=== PATIENT | female | born 1980 | race Caucasian/White ===

== ENCOUNTER 2023-08-30 15:25 | Inpatient (IN) | payer MEDICAID ==
[~2023-08-30] VITALS: Ht 160 cm; Wt 59.9 kg
[2023-08-30] MEDS ORDERED: CARB-92 PO (21:10)
[2023-08-30] MEDS ORDERED: QUET100T PO (21:10)
[2023-08-30 21:52] VITALS: BP 98/66; PULSE 94; RESP 18; TEMP 97.8; O2SAT 100
[2023-08-30] MEDS ORDERED: INFLUENZA VIRUS VACCINE QVS 2023-24 (6MO+)/PF 60 MCG/0.5 ML SYRINGE IM. ONE (22:30)
[2023-08-31] MEDS ORDERED: PETROLATUM,WHITE 28 GM JELLY TP PRN (05:30)
[2023-08-31] MEDS ORDERED: ALBUTEROL SULFATE HFA 90 MCG/PUFF 8 GM INHALER IH PRN (05:30)
[2023-08-31] MEDS ORDERED: ACETAMINOPHEN 325 MG TABLET PO PRN (05:30)
[2023-08-31] MEDS ORDERED: OMEPRAZOLE 20 MG CAPSULE PO PRN (05:30)
[2023-08-31] MEDS ORDERED: LOPERAMIDE HCL 2 MG CAPSULE PO PRN (05:30)
[2023-08-31] MEDS ORDERED: BENZOCAINE/MENTHOL LOZENGE PO PRN (05:30)
[2023-08-31] MEDS ORDERED: ONDANSETRON HCL 4 MG TABLET PO PRN (05:30)
[2023-08-31] MEDS ORDERED: MAG HYDROX/ALUMINUM HYD/SIMETH ES 30 ML SUSPENSION UDCUP PO PRN (05:30)
[2023-08-31] MEDS ORDERED: DOCUSATE SODIUM 100 MG CAPSULE PO PRN (05:30)
[2023-08-31] MEDS ORDERED: CloNIDine HCL 0.1 MG TABLET PO PRN (05:30)
[2023-08-31] MEDS ORDERED: MAGNESIUM HYDROXIDE SUSPENSION 30 ML UDCUP PO PRN (05:30)
[2023-08-31] MEDS ORDERED: IBUPROFEN 600 MG TABLET PO PRN (05:30)
[2023-08-31] MEDS ORDERED: BACITRACIN 28 GM OINTMENT TP PRN (05:30)
[2023-08-31 08:14] VITALS: BP 139/77; PULSE 76; RESP 16; TEMP 97.9; O2SAT 100
[2023-08-31 08:45] LABS: BASOPHILS % (AUTO) 0.6 % (0.0-2.0); EOSINOPHILS % (AUTO) 1.7 % (1.0-6.0); HEMATOCRIT 37.4 % (36-46); HEMOGLOBIN 12.3 g/dL (12.0-16.0); LYMPHOCYTES % (AUTO) 28.6 % (22.0-44.0); MEAN CORPUSCULAR HEMOGLOBIN 30.6 pg (26.0-34.0); MEAN CORPUSCULAR HGB CONC 32.9 G/dL (31.0-37.0); MEAN CORPUSCULAR VOLUME 93 fL (80-100); MONOCYTES # (AUTO) 0.4 K/uL (0.1-1.0); MONOCYTES % (AUTO) 6.1 % (2.0-9.0); NEUTROPHILS # (AUTO) 4.3 K/uL (1.8-7.7); PLATELET COUNT (AUTO) 381 K/uL (150-450); RED BLOOD CELL COUNT(AUTO) 4.02 MIL/uL (4.00-5.20); RED CELL DISTRIBUTION WIDTH 13.6 % (11.5-14.5); WHITE BLOOD COUNT (AUTO) 6.9 K/uL (4.5-11.0)
[2023-08-31 09:05] LABS: ALANINE AMINOTRANSFERASE 39 U/L (12-78); ALBUMIN 4.1 g/dL (3.4-5.0); ALKALINE PHOSPHATASE 91 U/L (46-116); ANION GAP 7 mmol/L (8-16); ASPARTATE AMINOTRANSFERASE 24 U/L (15-37); BILIRUBIN,TOTAL 0.2 mg/dL (0.1-1.0); CALCIUM, TOTAL 8.7 mg/dL (8.8-10.5); CARBAMAZEPINE (TEGRETOL) 2.9 mcg/mL (4.0-12.0); CARBON DIOXIDE 27 mmol/L (22-29); CHLORIDE 96 mmol/L (98-107); FREE T4 (FREE THYROXINE) 0.94 ng/dL (0.76-1.46); GLOMERULAR FILTR. RATE CALC > 60 mL/min (>60); GLUCOSE,RANDOM 90 mg/dL (70-110); HCG,QUANTITATIVE 3 mIU/mL (0-6); POTASSIUM 4.1 mmol/L (3.5-5.1); SODIUM SERUM 130 mmol/L (136-145); T4 (THYROXINE) 6.3 mcg/dL (4.7-13.3); THYROID STIMULATING HORMONE 0.92 uIU/mL (0.36-3.74); TOTAL PROTEIN, SERUM 7.1 g/dL (6.4-8.2); UREA NITROGEN, BLOOD 11 mg/dL (7-18)
[2023-08-31] MEDS: HALOPERIDOL 5 MG TABLET PO PRN (16:09)
[2023-08-31] MEDS: LORazepam 2 MG TABLET PO PRN (16:10)
[2023-08-31] MEDS: DIVALPROEX SODIUM 500 MG DR TABLET PO SCH (17:00)
[2023-08-31] MEDS: LITHIUM CARBONATE 300 MG CAPSULE PO SCH (17:00)
[2023-08-31 20:18] VITALS: BP 150/97; PULSE 107; RESP 18; TEMP 98.4; O2SAT 100
[2023-08-31] MEDS: QUEtiapine FUMARATE 300 MG TABLET PO SCH (20:52)
[2023-09-01] MEDS: ZOLPIDEM TARTRATE 10 MG TABLET PO PRN (02:24)
[2023-09-01 08:34] VITALS: RESP 18
[2023-09-01] MEDS ORDERED: HALOPERIDOL LACTATE 5 MG/ML VIAL ONE (17:37)
[2023-09-01] MEDS ORDERED: LORazepam 2 MG/ML VIAL ONE (17:37)
[2023-09-01] MEDS ORDERED: DiphenhydrAMINE HCL 50 MG/ML VIAL ONE (17:38)
[2023-09-01] MEDS: LORazepam 2 MG/ML VIAL IM ONE (17:51)
[2023-09-01] MEDS: DiphenhydrAMINE HCL 50 MG/ML VIAL IM ONE (17:51)
[2023-09-01] MEDS: HALOPERIDOL LACTATE 5 MG/ML VIAL IM ONE (17:52)
[2023-09-01 20:21] VITALS: BP 130/75; PULSE 84; RESP 17; TEMP 98
[2023-09-02 08:35] LABS: ANION GAP 10 mmol/L (8-16); CALCIUM, TOTAL 9.1 mg/dL (8.8-10.5); CARBON DIOXIDE 26 mmol/L (22-29); CHLORIDE 103 mmol/L (98-107); CREATININE 0.49 mg/dL (0.60-1.30); GLOMERULAR FILTR. RATE CALC > 60 mL/min (>60); GLUCOSE,RANDOM 83 mg/dL (70-110); POTASSIUM 4.3 mmol/L (3.5-5.1); SODIUM SERUM 139 mmol/L (136-145); UREA NITROGEN, BLOOD 10 mg/dL (7-18)
[2023-09-02 08:55] VITALS: BP 106/69; PULSE 105; RESP 18; TEMP 97.8; O2SAT 98
[2023-09-03 03:00] VITALS: BP 128/82; PULSE 95; RESP 18; TEMP 97.7; O2SAT 98
[2023-09-03] MEDS: DiphenhydrAMINE HCL 50 MG/ML VIAL IM ONE (08:18)
[2023-09-03] MEDS: LORazepam 2 MG/ML VIAL IM ONE (08:19)
[2023-09-03] MEDS: HALOPERIDOL LACTATE 5 MG/ML VIAL IM ONE (08:19)
[2023-09-03 09:59] VITALS: BP 132/84; PULSE 97; RESP 18; TEMP 97.5; O2SAT 97
[2023-09-03] MEDS: QUEtiapine FUMARATE 300 MG TABLET PO SCH (20:13)
[2023-09-03 20:41] VITALS: BP 103/67; PULSE 98; RESP 18; TEMP 97.5; O2SAT 96
[2023-09-04 08:34] LABS: LITHIUM < 0.20 mmol/L (0.60-1.20)
[2023-09-04 08:35] LABS: VALPROIC ACID < 3 mcg/mL (50-100)
[2023-09-04 14:33] VITALS: BP 104/63; PULSE 96; RESP 14; TEMP 97.7; O2SAT 100
[2023-09-04] MEDS: CarBAMazepine 200 MG TABLET PO SCH (17:51)
[2023-09-04 20:20] VITALS: BP 129/84; PULSE 110; RESP 18; TEMP 98.4; O2SAT 100
[2023-09-05 08:10] VITALS: BP 106/75; PULSE 100; RESP 18; TEMP 98.6; O2SAT 100
[2023-09-05 21:00] VITALS: BP 142/84; PULSE 100; RESP 18; TEMP 97.8; O2SAT 100
[2023-09-06 01:48] VITALS: RESP 18; TEMP 97.9
[2023-09-06 08:23] VITALS: BP 106/69; PULSE 80; RESP 18; TEMP 98; O2SAT 97
[2023-09-06] MEDS ORDERED: LITH300C3 PO (08:34)
[2023-09-06] MEDS ORDERED: QUET300T2 PO (08:35)
[2023-09-06] MEDS ORDERED: DIVA-112 PO (08:35)
[2023-09-06] MEDS ORDERED: CARB-92 PO (08:36)
== END 2023-09-06 15:26 | disposition home or self-care (01) | DRG 753 ==
LOC: B3A 20:56
PROVIDERS: ADMIT Psychiatry & Neurology Psychiatry; ATTEND Psychiatry & Neurology Psychiatry
DX: F31.9 Bipolar disorder, unspecified (principal); R45.851 Suicidal ideations; F41.9 Anxiety disorder, unspecified; G47.00 Insomnia, unspecified; I10 Essential (primary) hypertension; K59.00 Constipation, unspecified; Z72.89 Other problems related to lifestyle; Z88.2 Allergy status to sulfonamides
CPT/HCPCS: 80048; 80053; 80156; 80164; 80178; 84436; 84439; 84443; 84702; 85025; 86592; 87081; J1200; J1630; J2060